=== PATIENT | female | born 1970 | race Caucasian/White ===

== ENCOUNTER → 2022-01-08 | Outpatient (CLI) | payer OTHER ==
[2022-01-08 10:46] LABS: HEMOGLOBIN 11.4 gm/dl (12.3-15.3); RED BLOOD COUNT 3.79 M/UL (4.00-5.10); WHITE BLOOD COUNT 8.5 K/UL (4.5-11.0)
[2022-01-08 11:27] LABS: BUN/CREATININE RATIO 18 (0-10)
[2022-01-09 07:11] LABS: HBSAG SCREEN Negative (Negative); HCV AB <0.1 (0.0-0.9); HEP A AB, IGM Negative (Negative); HEP B CORE AB, IGM Negative (Negative); HIV AB/P24 AG SCREEN Non Reactive (Non Reactive); VITAMIN D, 25-HYDROXY 32.2 ng/mL (30.0-100.0)
[2022-01-09 10:12] LABS: THYROXINE (T4) 4.2 ug/dL (4.5-12.0)
[2022-01-09 15:13] LABS: TREPONEMA PALLIDUM ANTIBODIES Non Reactive (Non Reactive)
[2022-01-10 22:07] LABS: QUANTIFERON MITOGEN VALUE >10.00 IU/mL (.); QUANTIFERON NIL VALUE 0.25 IU/mL (.); QUANTIFERON TB1 AG VALUE 0.29 IU/mL (.); QUANTIFERON TB2 AG VALUE 0.27 IU/mL (.); QUANTIFERON-TB GOLD PLUS Negative (Negative)
== END ==
LOC: LAB 09:44
PROVIDERS: Obstetrics & Gynecology
DX: Z13.228 Encounter for screening for other metabolic disorders (principal); Z11.59 Encounter for screening for other viral diseases; Z11.4 Encounter for screening for human immunodeficiency virus [HIV]; R94.6 Abnormal results of thyroid function studies; E78.00 Pure hypercholesterolemia, unspecified; D51.9 Vitamin B12 deficiency anemia, unspecified; E55.9 Vitamin D deficiency, unspecified; R73.09 Other abnormal glucose; R76.12 Nonspecific reaction to cell mediated immunity measurement of gamma interferon antigen response without active tuberculosis
CPT/HCPCS: 80053; 80061; 80074; 82607; 82728; 83036; 83540; 84436; 84443; 84481; 85025; 86780; 87389